=== PATIENT | female | born 1990 | race African-American/Black ===

== ENCOUNTER 2020-10-29 22:08 | Emergency (ER) | payer SELFPAY ==
--- NOTE | 2020-10-29 22:27 | EDM.PDOC ---
ED HPI GENERAL MEDICAL PROBLEM - General Chief Complaint: Chest Pain Stated Complaint: CHEST PAIN/NUMBNESS IN LT ARM Time Seen by Provider: 10/29/20 22:26 Source of Information: Reports: Patient, RN Notes Reviewed - History of Present Illness INITIAL COMMENTS - FREE TEXT/NARRATIVE: 29 yr old male comes in with chest tightness, discomfort in L arm. Also has mild cough, bodyaches, diarrhea, lower abd pain and cramping. Has been traveling, just got back to [facility] a day or 2 ago. With the traveling a lot of 'eating out". Mild nausea, no vomiting. Very occasional cough, not short of breath. Lower Abdomen Pain Score (Numeric/FACES): 8 - Related Data Allergies Allergy/AdvReac Type Severity Reaction Status Date / Time No Known Allergies Allergy Verified 10/29/20 22:21 Home Meds: Home Meds hydroCHLOROthiazide [Hydrochlorothiazide] 1 tab PO DAILY 10/29/20 [History] Past Medical History Cardiovascular History: Reports: Arrhythmia, Hypertension Respiratory History: Reports: Asthma, Bronchitis, Recurrent, Sleep Apnea, SOB Other Respiratory History: uses CPAP at night Psychiatric History: Reports: Anxiety, Panic Attack Endocrine/Metabolic History: Reports: Obesity/BMI 30+ - Infectious Disease History Infectious Disease History: Reports: Chicken Pox - Past Surgical History Other Cardiovascular Surgeries/Procedures: cardioversion for atrial fibrillation a few agos Social & Family History - Tobacco Use Tobacco Use Status *Q: Current Every Day Tobacco User Years of Tobacco use: 5 Packs/Tins Daily: 0.2 - Caffeine Use Caffeine Use: Reports: Coffee - Recreational Drug Use Recreational Drug Use: Yes Drug Use in Last 12 Months: Yes Recreational Drug Type: Reports: Marijuana/Hashish, Other (see below) Other Recreational Drug Type: took leandro in [place] a few days ago Recreational Drug Use Frequency: Socially ED ROS GENERAL - Review of Systems Review Of Systems: See Below Constitutional: Denies: Fever, Chills, Diaphoresis HEENT: Denies: Throat Pain Respiratory: Reports: Cough (very occasional). Denies: Shortness of Breath Cardiovascular: Reports: Chest Pain GI/Abdominal: Reports: Abdominal Pain, Diarrhea (watery, frequent), Nausea. Denies: Vomiting Skin: Denies: Rash Neurological: Reports: Headache ED EXAM, GENERAL - Physical Exam Exam: See Below General Appearance: Alert Head: Atraumatic Neck: Supple Respiratory/Chest: No Respiratory Distress, Lungs Clear, Normal Breath Sounds. No: Rhonchi, Wheezing Cardiovascular: Tachycardia GI/Abdominal: Soft, Tender (very mild tenderness lower mid abd). No: Guarding, Rebound Extremities: Normal Inspection, Other (ambulatory without difficulty) Neurological: Alert, No Motor/Sensory Deficits Skin Exam: Warm, Dry, Normal Color #1 Interpretation EKG Date: 10/29/20 Rhythm: Other (sinus tach) Rate (Beats/Min): 104 [place]: Normal P-Wave: Present QRS: Normal ST-T: Normal QT: Normal Course - Vital Signs Last Recorded V/S: Last Vital Signs Temp 97.4 F 10/29/20 22:17 Pulse 95 10/29/20 23:01 Resp 18 10/29/20 23:01 BP 143/99 H 10/29/20 23:01 Pulse Ox 98 10/29/20 23:01 - Orders/Labs/Meds Meds: Medications Discontinued Medications Generic Name Dose Route Start Last Admin Trade Name Latoya PRN Reason Stop Dose Admin Ketorolac Tromethamine 60 mg 10/29/20 22:35 10/29/20 23:07 Ketorolac 60 Mg/2 Ml Sdv IM 10/29/20 22:36 Not Given ONETIME ONE Ketorolac Tromethamine 30 mg 10/29/20 23:07 10/29/20 23:11 Ketorolac 60 Mg/2 Ml Sdv IVPUSH 10/29/20 23:08 30 mg ONETIME ONE Administration - Re-Assessments/Exams Free Text/Narrative Re-Assessment/Exam: 10/30/20 01:57 EKG does not show acute changes, sats are good. Have given torodol IM for lower abd cramping. Discharge instr. as documented Departure - Departure Time of Disposition: 22:50 Disposition: Home, Self-Care 01 Condition: Fair Clinical Impression: Atypical chest pain Diarrhea Qualifiers: Diarrhea type: unspecified type Qualified Code(s): R19.7 - Diarrhea, unspecified Instructions: Nonspecific Chest Pain, Adult, [id number] Referrals: PCP,Not In Area [Primary Care Provider] - Forms: ED Department Discharge Additional Instructions: Clear liquids until diarrhea resolving. Probiotic 3 times daily for 1 week. Follow up clinic as needed if not much better within 2 to 3 days as expected. Sepsis Event Note (ED) - Evaluation Sepsis Screening Result: No Definite Risk - Focused Exam Vital Signs: Vital Signs Temp Pulse Pulse Pulse Resp BP BP 10/29/20 23:01 95 95 95 18 143/99 H 10/29/20 22:17 97.4 F 103 H 18 170/98 H Pulse Ox 10/29/20 23:01 98 10/29/20 22:17 97
[2020-10-29] MEDS ORDERED: Ketorolac 60 MG/2 ML SDV IM ONE (22:35)
[2020-10-29] MEDS ORDERED: Ketorolac 60 MG/2 ML SDV IVPUSH ONE (23:07)
== END 2020-10-29 23:20 | disposition home or self-care (01) ==
LOC: JD.ED 22:08
DX: R07.89 Other chest pain (principal); R19.7 Diarrhea, unspecified; I10 Essential (primary) hypertension; E66.9 Obesity, unspecified; Z68.43 Body mass index [BMI] 50.0-59.9, adult; Z72.0 Tobacco use
CPT/HCPCS: 93005; 96374; 99284; J1885; 93010